=== PATIENT | female | born 1970 | race Caucasian/White ===

== ENCOUNTER 2020-10-19 12:20 | Outpatient (REF) | payer OTHER, SELFPAY | END 2020-10-19 12:21 | disposition home or self-care (01) | LOC: HO.HMGCLDS 12:20 | PROVIDERS: PCP Internal Medicine; Visit Provider Internal Medicine | DX: Z13.89 Encounter for screening for other disorder (principal) ==

== ENCOUNTER 2024-09-23 12:52 | Outpatient (AMB) | payer OTHER, SELFPAY ==
[2024-09-23 13:32] VITALS: BP 106/78; PULSE 81; O2SAT 96; BMI 30.1
--- NOTE | 2024-09-23 13:32 | MHC.PC.OV ---
Vital Signs 09/23/24 13:32 Height 5 ft 3 in Weight 170 lb BMI 30.1 BP 106/78 Blood Pressure Location Lt brachial Position Sitting Pulse 81 Pulse Source Pulse Oximeter Pulse Oximetry (%) 96 Oxygen Delivery Method Room Air Intake Visit Reasons: lump on bridge of nose(needs to select pcp on ins) Intake Note: Pt is here today for a sick visit. Pt c/o lump near the R eye lid. Allergies No Known Allergies Allergy (Verified 09/23/24 13:45) Medication List - Last Reconciled 09/23/24 by Skye Ng MD acetaminophen 650 mg (2 x 325 mg) PO Q6H PRN 30 days alprazolam 1 mg PO TID PRN atorvastatin 10 mg PO DAILY bupropion HCl XL 150 mg PO QAM cholecalciferol (vitamin D3) 25 mcg PO DAILY escitalopram oxalate 5 mg PO DAILY gabapentin 600 mg PO BID PRN [Raised toilet seat As directed] walker Folding Front wheeled walker Tobacco use date assessed: 09/23/24 Dental Screening Dental Screen Date: 09/23/24 Did you have a dental visit in the last 12 months?: Yes Did you have a dental problem in the last 6 months where you did not have access to dental care?: No Was dental information given to patient?: Patient has dentist HPI lump on bridge of nose(needs to select pcp on ins) HPI Details Patient presents for physical. Past medical history includes hyperlipidemia controlled on atorvastatin and chronic anxiety with depression stable on current medications and patient is established with psychiatrist and psychologist. [facility] Medical History Osteoarthritis GERD (gastroesophageal reflux disease) COVID-19 vaccine series completed Hx of steroid therapy CARIE III (cervical intraepithelial neoplasia grade III) with severe dysplasia Hematuria Dysplastic nevus Normal Pap smear Hyperlipidemia Depression Anxiety Surgical History (Updated 09/23/24 @ 14:13 by Skye Ng MD) H/O colonoscopy History of appendectomy H/O LEEP History of foot surgery History of ear surgery Hx of breast implants, bilateral Family History Father IDDM (insulin dependent diabetes mellitus) HLD (hyperlipidemia) Mother Lung cancer COPD (chronic obstructive pulmonary disease) Former smoker Sister Brain aneurysm Brother Anxiety Depression HLD (hyperlipidemia) Diabetes mellitus Maternal Grandfather No problems noted. Maternal Grandmother No problems noted. Paternal Grandfather No problems noted. Paternal Grandmother No problems noted. Maternal Aunt Breast cancer Social History Housing: House Are you a primary home care liaison to a significant other at home: No Do you presently have visiting nurse or other home services: No Alcohol intake: current Alcohol intake frequency: does not drink Patient Tobacco Use Status: Former Tobacco user (2 weeks ago) Tobacco use type: Cigarette Cigarettes Per Day: 5 Years Smoked: 15 Packs per year/per ci.75 e-Cigarette/Vaping Use: Currently Using service: No Current occupational status: employed Cognitive needs: No Hearing needs: No Vision needs: Yes Female Reproductive History Menstrual Age of Menarche: 14 Questionnaire PHQ-9 Over the last 2 weeks, how often have you been bothered by any of the following problems? 1. Little interest or pleasure in doing things: nearly every day 2. Feeling down, depressed, or hopeless: nearly every day 3. Trouble falling or staying asleep, or sleeping too much: not at all 4. Feeling tired or having little energy: several days 5. Poor appetite or overeating: more than half the days 6. Feeling bad about yourself - or that you are a failure or have let yourself or your family down: more than half the days 7. Trouble concentrating on things, such as reading the newspaper or watching television: more than half the days 8. Moving or speaking so slowly that other people could have noticed. Or the opposite - being so fidgety or restless that you have been moving around a lot more than usual: more than half the days 9. Thoughts that you would be better off or of hurting yourself in some way: not at all Total score: 15 Depression Screening Interpretation: Positive (Patient is established with a psychiatrist and psychology, controlled on medications) Depression Screening Follow-up: Existing condition and In treatment Depression Screening Done: Yes 64877 - PHQ-9 Billing: Yes Source: Developed by Drs. Vincent Logan, Ilana Eden, Garret Saul and colleagues, with an educational yosef from [employer]. Thrive Questionnaire Date Thrive assessed: 09/23/24 I am a: Patient What is your living situation today?: I have a steady place to live Within the past 12 months, did the food you bought not last and you didn't have the money to get more?: Sometimes True Within the past 12 months, did you worry whether your food would run out before you got money to buy more?: Sometimes True Do you have trouble paying for medicines?: Yes Do you have trouble getting transportation to medical appointments?: I choose not to answer this question Do you have trouble paying your heating and electricity bill?: Yes Do you have trouble taking care of your child, family member or friend?: I choose not to answer this question Are you currently unemployed and looking for a job?: No Are you interested in more education?: No Please select the resources that you would like help with: None Currently or been in a relationship where the following occur: I choose not to answer THRIVE Score: 3 AUDIT C Alcohol Use Questionnaire (AUDIT-C) 1. How often do you have a drink containing alcohol?: Never 3. How often do you have six or more drinks on one occasion?: Never Total Score: 0 MARIUSZ-7 AMB Questionnaire MARIUSZ-7 Date MARIUSZ - 7 assessed: 09/23/24 Feeling nervous, anxious, or on edge: 3 = Nearly every day Not being able to stop or control worryin = Nearly every day Worrying too much about different things: 3 = Nearly every day Trouble relaxin = Nearly every day Being so restless that it is hard to sit still: 2 = More than half the days Becoming easily annoyed or irritable: 1 = Several days Feeling afraid as if something awful might happen: 3 = Nearly every day Total MARIUSZ-7 score (0-4 normal; 5-9 mild; 10-14 moderate; 15-21 severe): 18 Source: Developed by Drs. Vincent Logan, Ilana Eden, Garret Saul and colleagues, with an educational yosef from [employer]. MARIUSZ-7 Assessment Billing MARIUSZ-7 Assessment Tool: MARIUSZ-7 Assessment 20162 Review of Systems Const All systems reviewed & are unremarkable except as noted in HPI and below Eyes Reports no additional complaints ENT Reports no additional complaints Card Reports no additional complaints Resp Reports no additional complaints GI Reports no additional complaints Reports no additional complaints Physical exam (Primary Care) Vital Signs: Last Vital Signs Pulse 81 09/23/24 13:32 BP 106/78 09/23/24 13:32 Pulse Ox 96 09/23/24 13:32 Oxygen Delivery Method Room Air 09/23/24 13:32 BMI result Body Mass Index 30.1 Tobacco/Smoking Status: Tobacco use Status Tobacco use date assessed 09/23/24 09/23/24 13:46 Patient Tobacco Use Status Former Tobacco user (2 weeks 09/23/24 13:55 ago) Tobacco use type Cigarette 09/23/24 13:32 e-Cigarette/Vaping Use Currently Using 09/23/24 13:32 PHQ-9: PHQ-9 Score PHQ-9: Total score 15 09/23/24 14:23 Depression Screening Interpretation: Positive (Patient is established with a psychiatrist and psychology, controlled on medications) Depression Screening Follow-up: Existing condition and In treatment Thrive Assessment: Date of Thrive Assessment Date Thrive assessed 09/23/24 09/23/24 14:23 Currently or been in a relationship where the following occur: I choose not to answer Const General: no acute distress HENMT Head: Yes normal to inspection Ears: hearing grossly normal bilaterally Face and sinus: Yes normal facial exam Mouth: Normal oral and palatal mucosa present Eyes General: appearance normal, both eyes and all related structures Neck Neck: Yes no lymphadenopathy and Yes supple Resp Effort & Inspection: normal respiratory effort Auscultation: clear to auscultation bilaterally Cardio Rhythm: regular rhythm Heart sounds: S1 normal heart sound present and S2 normal heart sound present GI Inspection: Yes normal to inspection Palpation (GI): Soft to palpation Percussion: Yes normal to percussion Auscultation: normal bowel sounds Coding Level of Care Code Est Pt Prev Care 40-64y(75270) Diagnoses Annual physical exam Z00.00 Hyperlipidemia E78.5 Vitamin D deficiency E55.9 Additional Codes MARIUSZ-7 Assessment Billing - MARIUSZ-7 Assessment Tool: MARIUSZ-7 Assessment 58116 ([id number]) PHQ-9 - 15392 - PHQ-9 Billing: Yes ([id number]) Assessment & Plan Assessment & Plan (1) Annual physical exam: Code(s): Z00.00 - Encounter for general adult medical examination without abnormal findings Category: Medical Plan: Well-balanced diet regular physical activity tobacco quitting discussed with the patient. Patient is up-to-date with the Pap smear by panel lay up worker in [place] and will schedule breast MRI as ordered by panel lay up worker, patient had a colonoscopy last month was found to have 4 polyps and needs a repeat 1 in 2 years at [facility] (2) Hyperlipidemia: Code(s): E78.5 - Hyperlipidemia, unspecified Category: Medical Plan: Continue atorvastatin check lipid profile (3) Vitamin D deficiency: Code(s): E55.9 - Vitamin D deficiency, unspecified Category: Medical Plan: Continue vitamin-D supplement Orders: Orders Lipid Panel Today E55.9 - Vitamin D deficiency, unspecified, E78.5 - Hyperlipidemia, unspecified, Z00.00 - Encounter for general adult medical examination without abnormal findings TSH reflex Free T4 Today E55.9 - Vitamin D deficiency, unspecified, E78.5 - Hyperlipidemia, unspecified, Z00.00 - Encounter for general adult medical examination without abnormal findings Vitamin D 25-OH Total Today E55.9 - Vitamin D deficiency, unspecified, E78.5 - Hyperlipidemia, unspecified, Z00.00 - Encounter for general adult medical examination without abnormal findings Comprehensive [place]. Panel Fast Today E55.9 - Vitamin D deficiency, unspecified, E78.5 - Hyperlipidemia, unspecified, Z00.00 - Encounter for general adult medical examination without abnormal findings Complete Blood Count Auto Diff Today E55.9 - Vitamin D deficiency, unspecified, E78.5 - Hyperlipidemia, unspecified, Z00.00 - Encounter for general adult medical examination without abnormal findings Medications: New nicotine (polacrilex) 4 mg buccal Q8H PRN 81 ea 3RF nicotine cravings Refilled atorvastatin 10 mg PO DAILY 90 tabs 3RF Discontinued nicotine Discontinued Reason: Patient Completed Course 1 patch transdermal DAILY 56 patches 0RF permethrin 5% apply and leave on for 8 hrs ,second treatment 14 days after first treatment if live lice remain Discontinued Reason: Patient Completed Course 1 appl topical Q14D 60 grams 0RF
--- OUTSIDE RECORDS SUMMARY | 2024-09-23 15:29 | XMS_ITS ---
Author Organization [facility] Address [address] [place] [address] Care Team Providers Care Paradi Operator Name Role Phone Skye Ng MD Primary Care Provider Unavaila Dwayne Rodriguez Unavailable [phone] REASON FOR VISIT SHAREPOINT TRAINER appt cancelled Encounters Encounter Location Date Provider Diagnosis [facility] [address] [place] [address] 08/01/2023 Dwayne Murcia Plan Of Treatment No Information Progress Notes * Emeli CLARKDOB:1970 (53 yo F)Acc No.[id number]:08/01/2023 Patient:?Emeli Clark :1970???Age:53 Y???Sex:Female Address:[address] [place] [address] [place], [address] * true * Date:? Generated for Flaco bingham/River/eTransmitting on:?09/23/2024 03:29 PM EDT
--- OUTSIDE RECORDS SUMMARY | 2024-09-23 15:29 | XMS_ITS ---
Author Organization [facility] Address [address] [place] [id number] Care Team Providers Care Truck Engine Technician Name Role Phone Berenice NICHOLSON, Skye Primary Care Provider Unavaila Dwayne Rodriguez Unavailable [phone] Encounters Encounter Location Date Provider Diagnosis [facility] [address] [place] [address] 08/03/2023 Dwayne Murcia Plan Of Treatment No Information Progress Notes * Marcia CLARKbrittonkarissaDOB:1970 (54 yo F)Acc No.[id number]:08/03/2023 Progress Notes Patient:?Emeli CLARK Provider:?Dwayne Murcia DPM :1970???Age:53 Y???Sex:Female D ate:08/03/2023 Address:[address] [place], [place] [address], [place] Pcp:Skye Ng MD Subjective: * Chief Complaints: * ??? * Medical History:? Objective: * Vitals:? Assessment: Plan: * Treatment: * Images: * The named appointment provid er may or may not be the originator of this progress note, and it is not deemed complete until electronically signed by the appointment provider. Sign off status: Pending * Provider:?Dwayne Murcia DPM Date:?2023 Generated for Flaco bingham/River/eTransmitting on:?09/23/2024 03:29 PM EDT
--- OUTSIDE RECORDS SUMMARY | 2024-09-23 15:30 | XMS_ITS | Patient Health Record ---
Author Organization [facility] Address [address] [place] [address] Care Team Providers Care Supervisor International Reservations Name Role Phone Skye Ng MD Primary Care Provider Dwayne Cameron Unavailable [phone] Reason For Referral No Information Plan Of Treatment No Information Insurance Providers Payer Name Payer Address Payer Phone Subscriber Number Group Number Insured Name Patient Relationship to Insured Coverage Start Date Coverage End Date [facility] [employer] Claims [address] [place] [id number] [phone] [id number] Emeli Clark Self - patient is the insured
== END 2024-09-23 14:25 | disposition home or self-care (01) ==
LOC: HO.HMCC 12:52
PROVIDERS: PCP Internal Medicine; Visit Provider Internal Medicine
DX: Z00.00 Encounter for general adult medical examination without abnormal findings (principal); E78.5 Hyperlipidemia, unspecified; E55.9 Vitamin D deficiency, unspecified

== ENCOUNTER → 2024-09-23 12:52 | Outpatient (BNVA) | payer OTHER, SELFPAY | PROVIDERS: PCP Internal Medicine; Visit Provider Internal Medicine | DX: Z00.00 Encounter for general adult medical examination without abnormal findings (principal); E78.5 Hyperlipidemia, unspecified; E55.9 Vitamin D deficiency, unspecified; F41.9 Anxiety disorder, unspecified; F32.A Depression, unspecified | CPT/HCPCS: 96127; 99396 ==

== ENCOUNTER 2024-12-02 13:24 | Outpatient (REF) | payer OTHER, SELFPAY ==
[2024-12-02 16:18] LABS: MANUAL DIFF FLAG NO
[2024-12-02 16:24] LABS: Basophils Percent Auto 0.4 % (0-2); Eosinophils Absolute Auto 0.2 X10*3/uL (0.0-0.4); Hematocrit 41.8 % (37.0-47.0); Hemoglobin 14.4 g/dl (12.0-16.0); Imm Gran Abs Auto 0.01 X10*3/uL (0.00-0.03); Imm Gran Pct Auto 0.2 % (0.0-0.4); Lymphocytes Absolute Auto 2.5 X10*3/uL (1.2-4.9); Lymphocytes Percent Auto 50.1 % (20-40); Mean Corpuscular HGB Conc 34.4 g/dl (31.0-35.0); Mean Corpuscular Hemoglobin 32.3 pg (27.0-33.0); Mean Corpuscular Volume 93.7 fL (80.0-98.0); Mean Platelet Volume 9.5 fL (9.4-12.3); Monocytes Absolute Auto 0.4 X10*3/uL (0.1-1.2); Monocytes Percent Auto 7.8 % (2-11); Neutrophils Absolute Auto 1.9 x10*3/uL (2.0-8.3); Neutrophils Percent Auto 38.5 % (45-73); Platelet Count 250 X10*3/uL (160-400); Red Blood Count 4.46 X10*6/uL (4.20-5.50); Red Cell Distribution Width 12.6 % (11.0-16.0)
[2024-12-02 17:16] LABS: Alanine Aminotransferase 36 U/L (0-31); Albumin Level 4.7 g/dL (3.5-5.0); Alkaline Phosphatase 79 U/L (39-117); Anion Gap 12 (12-20); Aspartate Amino Transferase 27 U/L (5-31); Bilirubin Total 0.6 mg/dL (0.0-1.0); Blood Urea Nitrogen 13 mg/dL (9-16); Calcium 9.5 mg/dL (8.4-10.2); Carbon Dioxide 27 mmol/L (22-29); Chloride 105 mmol/L (96-108); Cholesterol 210 mg/dL (<200); Estimated Glomerular Filt Rate > 60; Glucose Fasting 86 mg/dL (60-99); HDL Cholesterol 53 mg/dL (>40); LDL Cholesterol Calculated 111 mg/dL (<100); Potassium 4.2 mmol/L (3.3-5.1); Sodium 140 mmol/L (135-145); Total Protein 6.7 g/dL (6.5-8.0); Triglycerides 234 mg/dL (<150)
[2024-12-02 17:31] LABS: TSH reflex Free T4 1.45 uIU/mL (0.32-4.0); Vitamin D 25-OH Total 77.2 ng/mL (>30)
[2024-12-02 18:08] LABS: Folate 11.9 ng/mL (> or = 4.0); Vitamin B12 452 pg/mL (200-900)
== END 2024-12-02 13:25 | disposition home or self-care (01) ==
LOC: HO.HMGCLDS 13:24
PROVIDERS: PCP Internal Medicine; Visit Provider Internal Medicine
DX: Z00.00 Encounter for general adult medical examination without abnormal findings (principal); E78.5 Hyperlipidemia, unspecified; F32.9 Major depressive disorder, single episode, unspecified
CPT/HCPCS: 36415; 80053; 80061; 82306; 82607; 82746; 84443; 85025; 96127; 99396

== ENCOUNTER 2024-12-02 13:24 | Outpatient (AMB) | payer OTHER, SELFPAY ==
[2024-12-02 13:26] VITALS: BP 112/70; PULSE 71; RESP 18; TEMP 36.7; O2SAT 97; BMI 29.8
--- NOTE | 2024-12-02 13:26 | MHC.PC.OV ---
Vital Signs 12/02/24 13:26 Height 5 ft 3 in Weight 168 lb BMI 29.8 BP 112/70 Blood Pressure Location Rt brachial Position Sitting Respiration 18 Pulse 71 Pulse Source Pulse Oximeter Temp 98.0 F Temp Source Oral Pulse Oximetry (%) 97 Oxygen Delivery Method Room Air Intake Visit Reasons: Annual PE/discuss mammo. options Intake Note: Pt is here today for PE. Allergies No Known Allergies Allergy (Verified 12/02/24 13:29) Medication List - Last Reconciled 12/02/24 by Skye Ng MD acetaminophen 650 mg (2 x 325 mg) PO Q6H PRN 30 days alprazolam 1 mg PO TID PRN atorvastatin 10 mg PO DAILY bupropion HCl XL 150 mg PO QAM cholecalciferol (vitamin D3) 25 mcg PO DAILY gabapentin 600 mg PO BID PRN nicotine (polacrilex) 4 mg buccal Q8H PRN [Raised toilet seat As directed] walker Folding Front wheeled walker Tobacco use date assessed: 12/02/24 Dental Screening Dental Screen Date: 12/02/24 Did you have a dental visit in the last 12 months?: Yes Did you have a dental problem in the last 6 months where you did not have access to dental care?: No Was dental information given to patient?: Patient has dentist HPI Annual PE/discuss mammo. options HPI Details Pt presents for PE. Patient has been decreasing caloric intake, increasing physical activity for over 6 months trying to lose weight unsuccessfully. Patient would like to try GLP 1 agonist to facilitate weight loss. [facility] Medical History (Updated 12/02/24 @ 14:22 by Skye Ng MD) Osteoarthritis GERD (gastroesophageal reflux disease) COVID-19 vaccine series completed Hx of steroid therapy CARIE III (cervical intraepithelial neoplasia grade III) with severe dysplasia Hematuria Dysplastic nevus Normal Pap smear Hyperlipidemia Depression Anxiety Surgical History H/O colonoscopy History of appendectomy H/O LEEP History of foot surgery History of ear surgery Hx of breast implants, bilateral Family History Father IDDM (insulin dependent diabetes mellitus) HLD (hyperlipidemia) Mother Lung cancer COPD (chronic obstructive pulmonary disease) Former smoker Sister Brain aneurysm Brother Anxiety Depression HLD (hyperlipidemia) Diabetes mellitus Maternal Grandfather No problems noted. Maternal Grandmother No problems noted. Paternal Grandfather No problems noted. Paternal Grandmother No problems noted. Maternal Aunt Breast cancer Social History Housing: House Are you a primary youth career specialist to a significant other at home: No Do you presently have visiting nurse or other home services: No Alcohol intake: current Alcohol intake frequency: does not drink Patient Tobacco Use Status: Former Tobacco user (2 weeks ago) Tobacco use type: Cigarette Cigarettes Per Day: 5 Years Smoked: 15 e-Cigarette/Vaping Use: Currently Using service: No Current occupational status: employed Cognitive needs: No Hearing needs: No Vision needs: Yes Female Reproductive History Menstrual Age of Menarche: 14 Questionnaire PHQ-9 Over the last 2 weeks, how often have you been bothered by any of the following problems? 1. Little interest or pleasure in doing things: more than half the days 2. Feeling down, depressed, or hopeless: nearly every day 3. Trouble falling or staying asleep, or sleeping too much: nearly every day 4. Feeling tired or having little energy: nearly every day 5. Poor appetite or overeating: nearly every day 6. Feeling bad about yourself - or that you are a failure or have let yourself or your family down: more than half the days 7. Trouble concentrating on things, such as reading the newspaper or watching television: more than half the days 8. Moving or speaking so slowly that other people could have noticed. Or the opposite - being so fidgety or restless that you have been moving around a lot more than usual: more than half the days 9. Thoughts that you would be better off or of hurting yourself in some way: not at all Total score: 20 Depression Screening Interpretation: Positive (Patient is established with a psychiatrist and therapist) Depression Screening Follow-up: Existing condition and In treatment Depression Screening Done: Yes 55593 - PHQ-9 Billing: Yes Source: Developed by Drs. Vincent Logan, Ilana Eden, Garret Saul and colleagues, with an educational yosef from [employer]. Thrive Questionnaire Date Thrive assessed: 12/02/24 I am a: Patient What is your living situation today?: I have a steady place to live Within the past 12 months, did the food you bought not last and you didn't have the money to get more?: Sometimes True Within the past 12 months, did you worry whether your food would run out before you got money to buy more?: Sometimes True Do you have trouble paying for medicines?: I choose not to answer this question Do you have trouble getting transportation to medical appointments?: I choose not to answer this question Do you have trouble paying your heating and electricity bill?: Yes Do you have trouble taking care of your child, family member or friend?: I choose not to answer this question Do you have trouble with day-to-day activities such as bathing, preparing meals, shopping, managing finances, etc.?: Yes Are you currently unemployed and looking for a job?: I choose not to answer this question Are you interested in more education?: No Please select the resources that you would like help with: None Currently or been in a relationship where the following occur: No concerns reported THRIVE Score: 3 AUDIT C Alcohol Use Questionnaire (AUDIT-C) 1. How often do you have a drink containing alcohol?: Never Total Score: 0 MARIUSZ-7 AMB Questionnaire MARIUSZ-7 Date MARIUSZ - 7 assessed: 12/02/24 Feeling nervous, anxious, or on edge: 3 = Nearly every day Not being able to stop or control worryin = Nearly every day Worrying too much about different things: 3 = Nearly every day Trouble relaxin = Nearly every day Being so restless that it is hard to sit still: 3 = Nearly every day Becoming easily annoyed or irritable: 2 = More than half the days Feeling afraid as if something awful might happen: 2 = More than half the days Total MARIUSZ-7 score (0-4 normal; 5-9 mild; 10-14 moderate; 15-21 severe): 19 Source: Developed by Drs. Vincent Logan, Ilana Eden, Garret Saul and colleagues, with an educational yosef from [employer]. MARIUSZ-7 Assessment Billing MARIUSZ-7 Assessment Tool: MARIUSZ-7 Assessment 90113 Review of Systems Const All systems reviewed & are unremarkable except as noted in HPI and below Eyes Reports no additional complaints ENT Reports no additional complaints Card Reports no additional complaints Resp Reports no additional complaints GI Reports no additional complaints Reports no additional complaints Physical exam (Primary Care) Vital Signs: Last Vital Signs Temp 98.0 F 12/02/24 13:26 Pulse 71 12/02/24 13:26 Resp 18 12/02/24 13:26 BP 112/70 12/02/24 13:26 Pulse Ox 97 12/02/24 13:26 Oxygen Delivery Method Room Air 12/02/24 13:26 BMI result Body Mass Index 29.8 Tobacco/Smoking Status: Tobacco use Status Tobacco use date assessed 12/02/24 12/02/24 13:32 Patient Tobacco Use Status Former Tobacco user (2 weeks 12/02/24 13:26 ago) Tobacco use type Cigarette 12/02/24 13:26 e-Cigarette/Vaping Use Currently Using 12/02/24 13:26 PHQ-9: PHQ-9 Score PHQ-9: Total score 20 12/02/24 13:34 Depression Screening Interpretation: Positive (Patient is established with a psychiatrist and therapist) Depression Screening Follow-up: Existing condition and In treatment Thrive Assessment: Date of Thrive Assessment Date Thrive assessed 12/02/24 12/02/24 13:34 Currently or been in a relationship where the following occur: No concerns reported Const General: no acute distress HENMT Head: Yes normal to inspection Ears: hearing grossly normal bilaterally Face and sinus: Yes normal facial exam Mouth: Normal oral and palatal mucosa present Throat: Yes posterior oropharynx normal Eyes General: appearance normal, both eyes and all related structures Neck Neck: Yes supple Resp Effort & Inspection: normal respiratory effort Auscultation: clear to auscultation bilaterally Cardio Rhythm: regular rhythm Heart sounds: S1 normal heart sound present and S2 normal heart sound present GI Inspection: Yes normal to inspection Palpation (GI): Soft to palpation Percussion: Yes normal to percussion Auscultation: normal bowel sounds Coding Level of Care Code Est Pt Prev Care 40-64y(95712) Diagnoses Hyperlipidemia E78.5 Annual physical exam Z00.00 Depression F32.9 Overweight E66.3 Additional Codes MARIUSZ-7 Assessment Billing - MARIUSZ-7 Assessment Tool: MARIUSZ-7 Assessment 00753 ([id number]) PHQ-9 - 58989 - PHQ-9 Billing: Yes ([id number]) Assessment & Plan Assessment & Plan (1) Hyperlipidemia: Code(s): E78.5 - Hyperlipidemia, unspecified Category: Medical Plan: cont statin, check blood work today (2) Annual physical exam: Code(s): Z00.00 - Encounter for general adult medical examination without abnormal findings Category: Medical Plan: Well-balanced diet regular physical activity discussed with the patient. Patient will schedule breast MRI for breast cancer screening because of the rupture breast implant (3) Depression: Comment: f/u psychatrist Code(s): F32.9 - Major depressive disorder, single episode, unspecified Category: Medical Plan: Follow-up with psychiatry (4) Overweight: Code(s): E66.3 - Overweight Category: Medical Plan: Try Zyban 2.5 mg weekly in addition to decreasing caloric intake increasing physical activity. If patient tolerates medication well the dose will be increased to 5 mg next month. Patient will follow-up in 3 months to monitor the weight lost and side effects Orders: Orders Complete Blood Count Auto Diff Today E78.5 - Hyperlipidemia, unspecified, Z00.00 - Encounter for general adult medical examination without abnormal findings Lipid Panel Today E78.5 - Hyperlipidemia, unspecified, Z00.00 - Encounter for general adult medical examination without abnormal findings Comprehensive [place]. Panel Fast Today E78.5 - Hyperlipidemia, unspecified, Z00.00 - Encounter for general adult medical examination without abnormal findings TSH reflex Free T4 Today E78.5 - Hyperlipidemia, unspecified, Z00.00 - Encounter for general adult medical examination without abnormal findings Vitamin B12 and Folate Today E78.5 - Hyperlipidemia, unspecified, Z00.00 - Encounter for general adult medical examination without abnormal findings Vitamin D 25-OH Total Today E78.5 - Hyperlipidemia, unspecified, Z00.00 - Encounter for general adult medical examination without abnormal findings Medications: New Zepbound (tirzepatide (weight loss)) for 4 weeks 2.5 mg (0.5 mL) subcut QWEEK 2 mL 1RF NS Discontinued nicotine (polacrilex) Discontinued Reason: Doctor's Order 4 mg buccal Q8H PRN 81 ea 3RF nicotine cravings
--- OUTSIDE RECORDS SUMMARY | 2024-12-02 15:17 | XMS_ITS ---
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 Name Role Phone Berenice NICHOLSON, Skye Primary Care Provider Unavaila Dwayne Rodriguez Unavailable [phone] Encounters Encounter Location Date Provider Diagnosis [facility] [address] [place] [address] 08/03/2023 Dwayne Murcia Plan Of Treatment No Information Progress Notes * Emeli CLARKDOB:1970 (54 yo F)Acc No.[id number]:08/03/2023 Progress Notes Patient:?Emeli CLARK Provider:?Dwayne Murcia DPM :1970???Age:53 Y???Sex:Female D ate:08/03/2023 Address:[address] [place], [place] [address] Pcp:Skye Ng MD Subjective: * Chief Complaints: [...] Murcia DPM Date:?2023 Generated for Flaco bingham/River/eTransmitting on:?12/02/2024 03:17 PM EDT
== END 2024-12-02 14:24 | disposition home or self-care (01) ==
LOC: HO.HMCC 13:25
PROVIDERS: PCP Internal Medicine; Visit Provider Internal Medicine
DX: E78.5 Hyperlipidemia, unspecified (principal); Z00.00 Encounter for general adult medical examination without abnormal findings; F32.9 Major depressive disorder, single episode, unspecified; E66.3 Overweight

== ENCOUNTER 2025-03-11 09:54 | Outpatient (REF) | payer OTHER, SELFPAY ==
--- NOTE | ~2025-03-11 | XR_ITS ---
EXAMINATION: XR HIP, RIGHT CLINICAL INFORMATION: M25.551 - Pain in right hip COMPARISON: April 16, 2023 TECHNIQUE: AP upright, AP supine, and frog-leg lateral views of the right hip. FINDINGS: Pelvis x-ray demonstrates mild degenerative changes in the SI joints with small marginal osteophytes Left hip joint is unremarkable. Total hip arthroplasty has been performed on the right and demonstrates no interval change. XR/XR hip RT min 2V IMPRESSION: Unremarkable examination status post total hip arthroplasty on the right. There is minimal SI joint degenerative changes. Electronically signed by: Gustavo Miller MD 03/11/2025 02:08 PM EDT
== END 2025-03-11 09:55 | disposition home or self-care (01) ==
LOC: HO.HOSX 09:54
PROVIDERS: Visit Provider Physician Assistant
DX: Z96.641 Presence of right artificial hip joint (principal)
CPT/HCPCS: 73502; 99212

== ENCOUNTER 2025-03-11 13:16 | Outpatient (AMB) | payer OTHER, SELFPAY ==
--- NOTE | 2025-03-11 13:22 | MHC.OFFVIS ---
Vital Signs 03/11/25 13:26 Height 5 ft 3 in Weight 168 lb BMI 29.8 Intake Visit Reasons: OV- follow up on RT GUANACO 08/24/21 NE Intake Note: Emeli is a 52 year old female who presents today for a follow up of her right hip status post right GUANACO, performed by Dr. Pizano on 08/24/21. At her last visit she was recommended to continue with postop exercises and follow up in a year. Today patient reports routine follow up, as she missed her yearly check up. States that she does have some discomfort in her lower back on her right side that travels into her buttocks. However she is unsure if this is back related. Allergies No Known Allergies Allergy (Verified 03/11/25 13:28) Medication List - Last Reconciled 03/11/25 by Radha Vasquez PA-C acetaminophen 650 mg (2 x 325 mg) PO Q6H PRN 30 days alprazolam 1 mg PO TID PRN atorvastatin 10 mg PO DAILY bupropion HCl XL 150 mg PO QAM cholecalciferol (vitamin D3) 25 mcg PO DAILY gabapentin 600 mg PO BID PRN [Raised toilet seat As directed] tirzepatide (weight loss) 5 mg (0.5 mL) subcut QWEEK walker Folding Front wheeled walker HPI HPI OV- follow up on RT GUANACO 08/24/21 NE: Details: 54 yo female returns to the office today s/p RT GUANACO 08/24/21 Dr. Pizano. She has been doing well overall however she complains of some low back SI joint type pain that does limit some of her activities. There is some pain that goes down her leg with getting in and out of a car or standing and sitting for a long period of time. She denies groin pain. She states her hip is overall better than prior to her hip replacement. [facility], [facility] Medical History (Updated 12/02/24 @ 14:22 by Skye Ng MD) Osteoarthritis GERD (gastroesophageal reflux disease) COVID-19 vaccine series completed Hx of steroid therapy CARIE III (cervical intraepithelial neoplasia grade III) with severe dysplasia Hematuria Dysplastic nevus Normal Pap smear Hyperlipidemia Depression Anxiety Surgical History H/O colonoscopy History of appendectomy H/O LEEP History of foot surgery History of ear surgery Hx of breast implants, bilateral Family History Father IDDM (insulin dependent diabetes mellitus) HLD (hyperlipidemia) Mother Lung cancer COPD (chronic obstructive pulmonary disease) Former smoker Sister Brain aneurysm Brother Anxiety Depression HLD (hyperlipidemia) Diabetes mellitus Maternal Grandfather No problems noted. Maternal Grandmother No problems noted. Paternal Grandfather No problems noted. Paternal Grandmother No problems noted. Maternal Aunt Breast cancer Social History Housing: House Are you a primary family day care provider to a significant other at home: No Do you presently have visiting nurse or other home services: No Alcohol intake: current Alcohol intake frequency: does not drink Patient Tobacco Use Status: Former Tobacco user (2 weeks ago) Tobacco use type: Cigarette Cigarettes Per Day: 5 Years Smoked: 15 e-Cigarette/Vaping Use: Currently Using service: No Current occupational status: employed Cognitive needs: No Hearing needs: No Vision needs: Yes Female Reproductive History Menstrual Age of Menarche: 14 Review of Systems Const All systems reviewed & are unremarkable except as noted in HPI and below Physical Exam Vital Signs: BMI result Body Mass Index 29.8 Extrem Other: Right hip without painful range of motion. She can perform hip flexion abduction and adduction without pain. She has mild tenderness over the SI joint and discomfort with straight leg raise. Neurovascularly intact. Results Reviewed Results Reviewed: X-rays of the right hip obtained in the office today and reviewed by me show intact orthopedic hip prosthesis. Assessment & Plan Assessment & Plan (1) S/P total right hip arthroplasty: Code(s): Z96.641 - Presence of right artificial hip joint Category: Surgical Plan: I did recommend a course of physical therapy for her low back and also a refresher course of her hip however she declined stating she is going to start chair yoga and has some exercise bands at home that she will use. I did demonstrate some exercises in the office today to help engage the core and also work on glute strength. I also gave her the name of our carry in worker if she is interested in having her low back further evaluated she can call and make an appointment. Otherwise she will follow up with us as needed. Orders: Orders XR hip RT min 2V Today M25.551 - Pain in right hip Coding Level of Care Code New Pt Level 3 (31753) Complex EM visit Add On G2211 Diagnoses S/P total right hip arthroplasty Z96.641
[2025-03-11 13:26] VITALS: BMI 29.8
== END 2025-03-11 14:07 | disposition home or self-care (01) ==
LOC: HO.HOS 13:16
PROVIDERS: PCP Internal Medicine; Visit Provider Physician Assistant
DX: M25.551 Pain in right hip (principal); Z96.641 Presence of right artificial hip joint
CPT/HCPCS: 99213; G2211

== ENCOUNTER → 2025-03-11 13:18 | Outpatient (BNV) | payer OTHER, SELFPAY | PROVIDERS: Visit Provider Radiology Diagnostic Radiology | DX: Z96.641 Presence of right artificial hip joint (principal); M25.551 Pain in right hip | CPT/HCPCS: 73502 ==

== ENCOUNTER 2025-03-19 13:10 | Outpatient (AMB) | payer OTHER, SELFPAY ==
[2025-03-19 13:14] VITALS: BP 110/66; PULSE 86; RESP 18; TEMP 36.5; O2SAT 98; BMI 26.6
--- NOTE | 2025-03-19 13:14 | MHC.PC.OV ---
Vital Signs 03/19/25 13:14 Height 5 ft 3 in Weight 150 lb BMI 26.6 BP 110/66 Blood Pressure Location Rt brachial Position Sitting Respiration 18 Pulse 86 Pulse Source Pulse Oximeter Temp 97.7 F Temp Source Oral Pulse Oximetry (%) 98 Oxygen Delivery Method Room Air Intake Visit Reasons: Med followup Intake Note: Pt is here today for a follow up visit. Allergies No Known Allergies Allergy (Verified 03/19/25 13:23) Medication List - Last Reconciled 03/19/25 by Skye Ng MD acetaminophen 650 mg (2 x 325 mg) PO Q6H PRN 30 days alprazolam 1 mg PO TID PRN atorvastatin 10 mg PO DAILY bupropion HCl XL 150 mg PO QAM cholecalciferol (vitamin D3) 25 mcg PO DAILY gabapentin 600 mg PO BID PRN [Raised toilet seat As directed] tirzepatide (weight loss) 5 mg (0.5 mL) subcut QWEEK walker Folding Front wheeled walker Zepbound (tirzepatide (weight loss)) 7.5 mg (0.5 mL) subcut QWEEK NS Tobacco use date assessed: 03/19/25 Dental Screening Dental Screen Date: 12/02/24 HPI Med followup HPI Details Patient presents for the follow-up. She lost 18 lb since November on 5 mg of Zepbound. Patient has been tolerating medication well. She has been eating well-balanced diet increasing physical activity. Hyperlipidemia stable on atorvastatin. [facility] Medical History (Updated 03/19/25 @ 14:32 by Skye Ng MD) Overweight Osteoarthritis GERD (gastroesophageal reflux disease) COVID-19 vaccine series completed Hx of steroid therapy CARIE III (cervical intraepithelial neoplasia grade III) with severe dysplasia Hematuria Dysplastic nevus Normal Pap smear Hyperlipidemia Depression Anxiety Surgical History H/O colonoscopy History of appendectomy H/O LEEP History of foot surgery History of ear surgery Hx of breast implants, bilateral Family History Father IDDM (insulin dependent diabetes mellitus) HLD (hyperlipidemia) Mother Lung cancer COPD (chronic obstructive pulmonary disease) Former smoker Sister Brain aneurysm Brother Anxiety Depression HLD (hyperlipidemia) Diabetes mellitus Maternal Grandfather No problems noted. Maternal Grandmother No problems noted. Paternal Grandfather No problems noted. Paternal Grandmother No problems noted. Maternal Aunt Breast cancer Social History Housing: House Are you a primary health care aide to a significant other at home: No Do you presently have visiting nurse or other home services: No Alcohol intake: current Alcohol intake frequency: does not drink Patient Tobacco Use Status: Former Tobacco user (2 weeks ago) Tobacco use type: Cigarette Cigarettes Per Day: 5 Years Smoked: 15 Packs per year/per ci.75 e-Cigarette/Vaping Use: Currently Using service: No Current occupational status: employed Cognitive needs: No Hearing needs: No Vision needs: Yes Female Reproductive History Menstrual Age of Menarche: 14 Questionnaire PHQ-9 Over the last 2 weeks, how often have you been bothered by any of the following problems? 1. Little interest or pleasure in doing things: more than half the days 2. Feeling down, depressed, or hopeless: several days 3. Trouble falling or staying asleep, or sleeping too much: nearly every day 4. Feeling tired or having little energy: nearly every day 5. Poor appetite or overeating: not at all 6. Feeling bad about yourself - or that you are a failure or have let yourself or your family down: several days 7. Trouble concentrating on things, such as reading the newspaper or watching television: several days 8. Moving or speaking so slowly that other people could have noticed. Or the opposite - being so fidgety or restless that you have been moving around a lot more than usual: more than half the days 9. Thoughts that you would be better off or of hurting yourself in some way: not at all Total score: 13 Depression Screening Interpretation: Positive (Established with psychiatrist and a counselor) Depression Screening Follow-up: Existing condition and In treatment Depression Screening Done: Yes Source: Developed by Drs. Vincent Logan, Ilana Eden, Garret Saul and colleagues, with an educational yosef from [employer]. Thrive Questionnaire Date Thrive assessed: 09/22/24 I am a: Patient What is your living situation today?: I have a steady place to live Within the past 12 months, did the food you bought not last and you didn't have the money to get more?: Sometimes True Within the past 12 months, did you worry whether your food would run out before you got money to buy more?: Sometimes True Do you have trouble paying for medicines?: Yes Do you have trouble getting transportation to medical appointments?: I choose not to answer this question Do you have trouble paying your heating and electricity bill?: Yes Do you have trouble taking care of your child, family member or friend?: I choose not to answer this question Do you have trouble with day-to-day activities such as bathing, preparing meals, shopping, managing finances, etc.?: I choose not to answer this question Are you currently unemployed and looking for a job?: No Are you interested in more education?: No Please select the resources that you would like help with: None Currently or been in a relationship where the following occur: I choose not to answer THRIVE Score: 3 MARIUSZ-7 AMB Questionnaire MARIUSZ-7 Date MARIUSZ - 7 assessed: 12/02/24 Feeling nervous, anxious, or on edge: 2 = More than half the days Not being able to stop or control worryin = More than half the days Worrying too much about different things: 2 = More than half the days Trouble relaxin = More than half the days Being so restless that it is hard to sit still: 3 = Nearly every day Becoming easily annoyed or irritable: 2 = More than half the days Feeling afraid as if something awful might happen: 2 = More than half the days Total MARIUSZ-7 score (0-4 normal; 5-9 mild; 10-14 moderate; 15-21 severe): 15 Source: Developed by Drs. Vincent Logan, Ilana Eden, Garret Saul and colleagues, with an educational yosef from [employer]. Review of Systems Const All systems reviewed & are unremarkable except as noted in HPI and below Eyes Reports no additional complaints ENT Reports no additional complaints Card Reports no additional complaints Resp Reports no additional complaints GI Reports no additional complaints Physical exam (Primary Care) Vital Signs: Last Vital Signs Temp 97.7 F 03/19/25 13:14 Pulse 86 03/19/25 13:14 Resp 18 03/19/25 13:14 BP 110/66 03/19/25 13:14 Pulse Ox 98 03/19/25 13:14 Oxygen Delivery Method Room Air 03/19/25 13:14 BMI result Body Mass Index 26.6 Tobacco/Smoking Status: Tobacco use Status Tobacco use date assessed 03/19/25 03/19/25 13:26 Patient Tobacco Use Status Former Tobacco user (2 weeks 03/19/25 13:15 ago) Tobacco use type Cigarette 03/19/25 13:15 e-Cigarette/Vaping Use Currently Using 03/19/25 13:15 PHQ-9: PHQ-9 Score PHQ-9: Total score 13 03/19/25 13:28 Depression Screening Interpretation: Positive (Established with psychiatrist and a counselor) Depression Screening Follow-up: Existing condition and In treatment Thrive Assessment: Date of Thrive Assessment Date Thrive assessed 09/22/24 03/19/25 13:15 Currently or been in a relationship where the following occur: I choose not to answer Const General: no acute distress HENMT Face and sinus: Yes normal facial exam Neck Neck: Yes supple Resp Effort & Inspection: normal respiratory effort Auscultation: clear to auscultation bilaterally Cardio Rhythm: regular rhythm Heart sounds: S1 normal heart sound present and S2 normal heart sound present GI Inspection: Yes normal to inspection Coding Level of Care Code Est Pt Level 4 (27550) Diagnoses Hyperlipidemia E78.5 Overweight E66.3 Depression F32.9 Assessment & Plan Assessment & Plan (1) Hyperlipidemia: Code(s): E78.5 - Hyperlipidemia, unspecified Category: Medical Plan: Continue atorvastatin low-cholesterol diet check lipid profile in 3 months (2) Overweight: Code(s): E66.3 - Overweight Category: Medical Plan: Patient was advised to continue decreasing Caloric intake increasing physical activity and Zepbound will be increased to 7.5 mg week to follow-up in 3 months (3) Depression: Comment: f/u psychatrist Code(s): F32.9 - Major depressive disorder, single episode, unspecified Category: Medical Plan: Continue current medications follow-up with psychiatry and a counselor Orders: Orders Lipid Panel 3 Months E78.5 - Hyperlipidemia, unspecified Comprehensive [place]. Panel Fast 3 Months E78.5 - Hyperlipidemia, unspecified Medications: New Zepbound (tirzepatide (weight loss)) 7.5 mg (0.5 mL) subcut QWEEK 2 mL 3RF NS Zepbound (tirzepatide (weight loss)) 7.5 mg (0.5 mL) subcut QWEEK 2 mL 3RF NS Discontinued tirzepatide (weight loss) for 4 weeks Discontinued Reason: Doctor's Order 5 mg (0.5 mL) subcut QWEEK 2 mL 1RF
== END 2025-03-19 14:35 | disposition home or self-care (01) ==
LOC: HO.HMCC 13:11
PROVIDERS: PCP Internal Medicine; Visit Provider Internal Medicine
DX: E78.5 Hyperlipidemia, unspecified (principal); E66.3 Overweight; F32.9 Major depressive disorder, single episode, unspecified

== ENCOUNTER → 2025-03-19 13:10 | Outpatient (BNVA) | payer OTHER, SELFPAY | PROVIDERS: PCP Internal Medicine; Visit Provider Internal Medicine | DX: E66.3 Overweight (principal); E78.5 Hyperlipidemia, unspecified; F32.9 Major depressive disorder, single episode, unspecified; Z68.26 Body mass index [BMI] 26.0-26.9, adult | CPT/HCPCS: 96127; 99212 ==